=== PATIENT | female | born 1995 | race Caucasian/White ===

== ENCOUNTER 2017-09-16 22:39 | Emergency (ER) | payer OTHER ==
[~2017-09-16] VITALS: Ht 157.5 cm; Wt 59.0 kg
[2017-09-16] MEDS ORDERED: VYVANSE40 MG ORAL (22:43)
[2017-09-16] MEDS ORDERED: PROZAC40 MG ORAL (22:43)
[2017-09-16 22:45] VITALS: BP 123/81
--- NOTE | 2017-09-16 22:56 | Emergency Room Report ---
History of Present Illness General Chief Complaint: Behavioral Complaint Source: Patient Present Illness HPI This is a 22-year-old female who is right-hand dominant. She has a history of depression. She called 911 for suicidal thoughts and attempt. She says she was feeling depressed and worthless. So she cut herself with a razor. She has laceration to the left antecubital area. Also on her left hand. Yesterday she cut herself on the right hand. She has done this before in usually talk it out with her therapist at [facility]. She had some alcohol tonight. No drug use. Ever been in a psychiatric hospital before. Police placed her on a 5150. Allergies: Coded Allergies: SULFA (SULFONAMIDE ANTIBIOTICS) (Verified Allergy, Unknown, 09/16/17) Patient History Past Medical History: see triage record, psych hx Past Surgical History: none Pertinent Family History: none Social History: Denies: smoking Last Menstrual Period: 06/2017 Now: No - nexplanon Immunizations: other Reviewed Nursing Documentation: PMH: Agreed; PSxH: Agreed Nursing Documentation-PMH Past Medical History: No History, Except For History Of Psychiatric Problem: Yes - DEPRESSION, ANXIETY Review of Systems Eye: Denies: eye pain, blurred vision ENT: Denies: ear pain, nose congestion, throat swelling Respiratory: Denies: cough, shortness of breath Cardiovascular: Denies: chest pain, palpitations Gastrointestinal: Denies: abdominal pain, diarrhea, nausea, vomiting Musculoskeletal: Denies: back pain, joint pain Skin: Denies: rash Psychiatric: Reports: depressed feelings, SI Neurological: Denies: headache, numbness Endocrine: Denies: increased thirst, increased urine Hematologic/Lymphatic: Denies: easy bruising All Other Systems: negative except mentioned in HPI Physical Exam Vital Signs Date Time Temp Pulse Resp B/P (MAP) Pulse Ox O2 Delivery O2 Flow Rate FiO2 09/16/17 22:31 98.1 92 16 121/78 98 98.1 vitals normal Sp02 EP Interpretation: reviewed, normal General Appearance: well appearing, no apparent distress, alert Head: normocephalic, atraumatic Eyes: bilateral eye PERRL, bilateral eye EOMI ENT: hearing grossly normal, normal pharynx Neck: full range of motion, supple, no meningismus Respiratory: chest non-tender, lungs clear, normal breath sounds Cardiovascular #1: regular rate, rhythm, no murmur Gastrointestinal: normal bowel sounds, non tender, no mass, no organomegaly, no bruit, non-distended Musculoskeletal: back normal, gait/station normal, normal range of motion, other - Right hand: There is a 2 cm horizontal laceration on the dorsum of the hand. It's clean without any evidence of infection. No tendon involvement. This is from yesterday. Left arm: There is a gaping 3 cm laceration to the antecubital area. No foreign body. No tendon laceration. There are multiple horizontal superficial laceration to the wrist/distal forearm area on the volar aspect. Nothing to be sutured. Neurologic: alert, oriented x3 Psychiatric: mood/affect normal Skin: warm/dry Procedures Laceration/Wound Repair Laceration/Wound Repair : Consent: Verbal Wound Location: upper extremity Wound's Depth, Shape: superficial, linear Wound Length (cm): 6 Wound Explored: clean Irrigated w/ Saline (ccs): 1000 Betadine Prep?: Yes Anesthesia: 1% Lidocaine Volume Anesthetic (ccs): 5 Wound Repaired With: sutures Suture Size/Type: 5:0, proline Number of Sutures: 10 Sterile Dressing Applied?: Yes Patient Tolerated: Well Complications: None Progress A total of 10 sutures placed. 2 on the right hand. 3 on the left hand. 5 on the left antecubital area. Medical Decision Making Diagnostic Impression: Primary Impression: Depression with suicidal ideation Additional Impressions: Laceration of upper extremity Qualified Codes: S41.119A - Laceration without foreign body of unspecified upper arm, initial encounter Alcohol intoxication Qualified Codes: F10.920 - Alcohol use, unspecified with intoxication, uncomplicated ER Course Patient with alcohol intoxication and depression with suicidal attempt with laceration. No deep laceration. No evidence of infection. No evidence of tendon laceration or foreign body. Her therapist is at [facility] and police is willing to take her there. Patient is cooperative. She is medically cleared. Last Vital Signs Date Time Temp Pulse Resp B/P (MAP) Pulse Ox O2 Delivery O2 Flow Rate FiO2 09/16/17 22:31 98.1 92 16 121/78 98 98.1 Status: improved Disposition: D/C TO LAW ENFORCEMENT IN CUST Condition: Stable Additional Instructions: Go directly to [facility] psychiatric facility. Return if symptom worsen. ROEL DE SOUZA M.D. September 16, 2017 22:56
[2017-09-16 23:31] LABS: BASOPHILS % (AUTO) 1.5 % (0.0-2.0); EOSINOPHILS % (AUTO) 1.9 % (0.0-3.0); HEMATOCRIT 49.4 % (37.0-47.0); HEMOGLOBIN 16.4 G/DL (12.0-16.0); LYMPHOCYTES % (AUTO) 33.1 % (20.0-45.0); MEAN CORPUSCULAR VOLUME 91 FL (80-99); MONOCYTES % (AUTO) 7.6 % (1.0-10.0); PLATELET COUNT 307 K/UL (150-450); RED BLOOD COUNT 5.43 M/UL (4.20-5.40); RED CELL DISTRIBUTION WIDTH 12.3 % (11.6-14.8); WHITE BLOOD COUNT 7.3 K/UL (4.8-10.8)
[2017-09-16 23:38] LABS: ANION GAP 11 mmol/L (5-15); BLOOD UREA NITROGEN 12 mg/dL (7-18); CALCIUM 8.8 MG/DL (8.5-10.1); CARBON DIOXIDE 25 MMOL/L (21-32); CHLORIDE 105 MMOL/L (98-107); CREATININE 0.7 MG/DL (0.55-1.30); POTASSIUM 3.7 MMOL/L (3.5-5.1); SODIUM 141 MMOL/L (136-145)
[2017-09-16 23:44] LABS: ALANINE AMINOTRANSFERASE 33 U/L (12-78); ALBUMIN 4.2 G/DL (3.4-5.0); ALBUMIN/GLOBULIN RATIO 0.9 (1.0-2.7); ALKALINE PHOSPHATASE 96 U/L (46-116); ASPARTATE AMINO TRANSFERASE 23 U/L (15-37); BILIRUBIN,TOTAL 0.2 MG/DL (0.2-1.0)
[2017-09-16 23:55] VITALS: BP 123/81
== END 2017-09-17 ==
LOC: EDBD 22:39 → EMR 22:59
DX: F32.9 Major depressive disorder, single episode, unspecified (principal); R45.851 Suicidal ideations; S41.119A Laceration without foreign body of unspecified upper arm, initial encounter; F10.920 Alcohol use, unspecified with intoxication, uncomplicated; X78.8XXA Intentional self-harm by other sharp object, initial encounter; Y92.9 Unspecified place or not applicable; Z88.2 Allergy status to sulfonamides; F41.9 Anxiety disorder, unspecified
CPT/HCPCS: 12004; 36415; 80053; 80307; 85025; 99283; G0480; 80329

== ENCOUNTER 2019-06-24 02:11 | Emergency (ER) | payer OTHER, SELFPAY ==
[~2019-06-24] VITALS: Ht 157.5 cm; Wt 49.9 kg
[~2019-06-24 02:11] MED LIST: PROZAC40 MG ORAL; VYVANSE40 MG ORAL
[2019-06-24 02:15] VITALS: BP 120/90
--- NOTE | 2019-06-24 02:15 | NUR ---
ED Nurse Note: Pt brought in to ED by [employer] c/o wrist pain. As per pt, pain was caused by handcuffed. Not in any distress. VSS. Pt is under custody.
--- NOTE | 2019-06-24 02:19 | Emergency Room Report ---
History of Present Illness General Chief Complaint: Medical Clearance Source: Patient Present Illness HPI Disclaimer: Please note that this report is being documented using DRAGON technology. This can lead to erroneous entry secondary to incorrect interpretation by the dictating instrument. HPI: 23-year-old female presents in police custody for medical clearance prior to booking. Originally she was complaining of wrist pain though is unclear which wrist was injured or if there was an injury. She is now denying any wrist pain aside from stating that the handcuffs are too tight. She denies any fall or twisting motion. Denies any pain currently. She does not want any medication or further imaging. Denies any numbness or tingling. Denies any skin breakdown or rash. Denies any restriction to range of motion. Allergies: Coded Allergies: SULFA (SULFONAMIDE ANTIBIOTICS) (Verified Allergy, Unknown, 09/16/17) Nursing Documentation-[facility] Past Medical History: No Stated History Review of Systems All Other Systems: negative except mentioned in HPI Physical Exam General: Awake and alert, no acute distress HEENT: NC/AT. EOMI. Resp: Normal work of breathing Skin: Intact. No abrasions, laceration or rash over the exposed skin MSK: Normal tone and bulk. Moving all extremities. No obvious deformity. No obvious deformity of the wrist or hands. No tenderness palpation. No restriction to range of motion. Brisk capillary refill in all digits. 2+ radial pulses bilaterally. Neuro: Awake and alert. Mentating appropriately Medical Decision Making Diagnostic Impression: Primary Impression: Medical clearance for incarceration ER Course 23-year-old female presents for medical clearance prior to booking originally complaining of wrist pain now without complaints. Physical exam reassuring. No obvious deformity or signs of significant injury. No injuries identified by patient or police. The patient has did not planning any further work-up and is declining any medication or x-rays at this time. Will discharge to police custody. Can return with new or worsening symptoms. Disposition: D/C TO LAW ENFORCEMENT IN CUST Condition: Stable Referrals: [facility] Departure Forms: Long Term Clearance Additional Instructions: Please follow-up with your primary care doctor in the next 1 to 3 days to discuss this emergency department visit and for reevaluation. If you have any new or worsening symptoms please return to the emergency department for reevaluation. Please note that this report is being documented using DRAGON technology. This can lead to erroneous entry secondary to incorrect interpretation by the dictating instrument. Theo Martin MD Jun 24, 2019 02:19
[2019-06-24 02:21] VITALS: BP 120/90
--- NOTE | 2019-06-24 02:21 | NUR ---
ED Nurse Note: Pt cleared by [facility] for discharge. DC instructions was given and explained to pt and verbalized understanding of teachings. All medical deviecs such as ID band removed. Pt is AAO x4, ambulatory and left with all personal belongings. Pt is under custody and was accompanied by [facility].
== END 2019-06-24 02:21 ==
LOC: EMR 02:20
DX: M25.539 Pain in unspecified wrist (principal); Z88.2 Allergy status to sulfonamides
CPT/HCPCS: 99281